=== PATIENT | female | born 1970 | race Caucasian/White ===

== ENCOUNTER 2018-01-14 15:01 | Emergency (ER) | payer OTHER ==
[~2018-01-14] VITALS: Ht 170.2 cm; Wt 75.5 kg
[2018-01-14 15:13] VITALS: BP 150/99; Ht 170.2 cm; Wt 75.5 kg
== END 2018-01-14 15:50 | disposition home or self-care (01) ==
LOC: ED 15:01
DX: M79.642 Pain in left hand (principal); M79.641 Pain in right hand; W22.8XXA Striking against or struck by other objects, initial encounter; Y93.89 Activity, other specified; Y92.89 Other specified places as the place of occurrence of the external cause; Y99.8 Other external cause status